=== PATIENT | male | born 1965 | race Caucasian/White ===

== ENCOUNTER 2021-04-01 17:16 | Emergency (ER) | payer MEDICARE, MEDICAID ==
[~2021-04-01] VITALS: Ht 172.7 cm; Wt 81.6 kg
--- NOTE | 2021-04-01 17:46 | NUR ---
PT REFUSED TO BE EXAMINED BY DR DICKSON. PT REFUSED TRIAGE ASSESSMENT, DID NOT ALLOW RN TO TAKE VITAL SIGNS.
--- NOTE | 2021-04-01 17:47 | NUR ---
PATIENT [facility] POL[employer] DEPT. PATIENT EXAMINED BY DR. DICKSON. PATIENT MEDICALLY CLEARED AND RELEASED IN CUSTODY IN STABLE CONDITION. ORIGINAL PRE-BOOK FORM GIVEN TO OFFICER ABHI.
== END 2021-04-01 17:47 ==
LOC: MED 17:16
DX: Z02.89 Encounter for other administrative examinations (principal); Z04.1 Encounter for examination and observation following transport accident
CPT/HCPCS: 99283